=== PATIENT | female | born 1955 | race Caucasian/White ===

== ENCOUNTER 2018-06-21 08:41 | Emergency (ER) | payer OTHER ==
[2018-06-21] MEDS ORDERED: HYDROCODONE/APAP 5/325 MG TAB ONE (09:22)
--- NOTE | 2018-06-21 11:06 | RAD REPORT ---
EXAM DESCRIPTION: RAD - Ankle Left 3 View -06/21/2018 10:56 am CLINICAL HISTORY: Left ankle pain status post fall FINDINGS: The bones are osteoporotic. Soft tissue swelling is present laterally. No fracture or dislocation is seen
--- NOTE | 2018-06-21 11:08 | RAD REPORT ---
EXAM DESCRIPTION: RAD - Elbow Right 2 View - 06/21/2018 10:56 am CLINICAL HISTORY: Elbow pain status post fall FINDINGS: A limited two view series was obtained. 15 millimeter avulsion fracture of the olecranon process is seen. A supracondylar humeral fracture is mildly to moderately displaced. No gross dislocation is seen.
--- NOTE | 2018-06-21 11:15 | RAD REPORT ---
EXAM DESCRIPTION: CT - Thorax Wo Con - 06/21/2018 10:52 am CLINICAL HISTORY: Chest pain status post fall COMPARISON: None TECHNIQUE: Computed axial tomography of the chest was obtained. Contrast was not requested. All CT scans are performed using dose optimization technique as appropriate and may include automated exposure control or mA/KV adjustment according to patient size. FINDINGS: The evaluation of mediastinum, monica and vessels is limited secondary to lack of IV contras t administration. A pulmonary contusion is not seen. A mediastinal hematoma is not seen. A pleural effusion is not present. A pericardial effusion is not noted. IMPRESSION: No traumatic injury is noted.
--- NOTE | 2018-06-21 11:35 | RAD REPORT ---
EXAM DESCRIPTION: Mikaela Single View06/21/2018 10:57 am CLINICAL HISTORY: Chest pain COMPARISON: none FINDINGS: The lungs appear clear of acute infiltrate. The heart is normal size IMPRESSION: No acute abnormalities displayed
--- NOTE | 2018-06-21 12:57 | EDPHYS ---
Physician Documentation [facility] Name: Ailyn Davis Age: 62 yrs Sex: Female : 1955 Arrival Date: 06/21/2018 Time: 08:48 Bed 4 Private MD: None, None ED Physician Noe Hansen HPI: 06/21 12:52 This 62 yrs old Female presents to ER via Wheelchair with complaints of Fall gs Injury. 12:52 Details of fall: The patient fell from an upright position, while walking. Onset: The gs symptoms/episode began/occurred acutely, just prior to arrival. Associated injuries: The patient sustained right elbow, deformity, obvious fracture, painful injury, swelling, left lateral ankle, swelling. Associated injuries: The patient sustained injury to the chest, specifically the right lateral anterior chest, contusion. Severity of symptoms: At their worst the symptoms were moderate. The patient has not experienced similar symptoms in the past. Historical: - Allergies: 09:02 Sulfa (Sulfonamide Antibiotics); bp 09:02 Bactrim; bp - Home Meds: 09:02 Enalapril Oral [Active]; bp - PMHx: 09:02 Cancer; Hypertension; Diabetes - NIDDM; bp - PSHx: 09:02 Mastectomy; bp - Immunization history:: Adult Immunizations up to date. - Social history:: Smoking status: Patient/guardian denies using tobacco. - Ebola Screening: : Patient negative for fever greater than or equal to 101.5 degrees Fahrenheit, and additional compatible Ebola Virus Disease symptoms Patient denies exposure to infectious person Patient denies travel to an Ebola-affected area in the 21 days before illness onset No symptoms or risks identified at this time. ROS: 12:52 Cardiovascular: Negative for palpitations. gs 12:52 Respiratory: Negative for shortness of breath. 12:52 All other systems are negative. Exam: 12:52 Head/Face: Normocephalic, atraumatic. Eyes: Pupils equal round and reactive to light, gs extra-ocular motions intact. Lids and lashes normal. Conjunctiva and sclera are non-icteric and not injected. Cornea within normal limits. Periorbital areas with no swelling, redness, or edema. ENT: Nares patent. No nasal discharge, no septal abnormalities noted. Tympanic membranes are normal and external auditory canals are clear. Oropharynx with no redness, swelling, or masses, exudates, or evidence of obstruction, uvula midline. Mucous membranes moist. Neck: Trachea midline, no thyromegaly or masses palpated, and no cervical lymphadenopathy. Supple, full range of motion without nuchal rigidity, or vertebral point tenderness. No Meningismus. Cardiovascular: Regular rate and rhythm with a normal S1 and S2. No gallops, murmurs, or rubs. Normal PMI, no JVD. No pulse deficits. Respiratory: Lungs have equal breath sounds bilaterally, clear to auscultation and percussion. No rales, rhonchi or wheezes noted. No increased work of breathing, no retractions or nasal flaring. Abdomen/GI: Soft, non-tender, with normal bowel sounds. No distension or tympany. No guarding or rebound. No evidence of tenderness throughout. Back: No spinal tenderness. No costovertebral tenderness. Full range of motion. Neuro: Awake and alert, GCS 15, oriented to person, place, time, and situation. Cranial nerves II-XII grossly intact. Motor strength 5/5 in all extremities. Sensory grossly intact. Cerebellar exam normal. Normal gait. 12:52 Constitutional: The patient appears alert, awake, in obvious distress, moderately distressed. 12:52 Chest/axilla: Palpation: tenderness, that is mild, of the right lateral anterior chest. 12:52 Musculoskeletal/extremity: Pulses: are normal with no appreciated deficits, Joints: the right elbow displays deformity, effusion, painful range of motion, swelling, tenderness, the left ankle displays swelling. 12:52 Neuro: Sensation: no obvious gross deficits. Vital Signs: 09:02 BP 148 / 91; Pulse 67; Resp 16; Temp 98.9; Pulse Ox 97% ; Weight 108.86 kg; Height 5 bp ft. 5 in. (165.10 cm); 10:02 BP 142 / 88; Pulse 66; Resp 16; Pulse Ox 100% ; Pain 4/10; sg 11:02 BP 132 / 62; Pulse 69; Resp 17; Pulse Ox 100% on R/A; Pain 4/10; sg 11:57 BP 135 / 66; Pulse 69; Resp 18; Pulse Ox 100% on R/A; ss 12:02 BP 132 / 66; Pulse 69; Resp 17; Pulse Ox 100% on R/A; Pain 4/10; sg 13:02 BP 133 / 67; Pulse 67; Resp 17; Pulse Ox 100% on R/A; sg 09:02 Body Mass Index 39.94 (108.86 kg, 165.10 cm) bp Procedures: 12:52 Splinting: Splint applied to right elbow using Orthoglass splint, applied by tech. gs Examined by me, post splint application: neurovascular intact, 2+ distal pulses palpable, brisk capillary refill noted, Patient tolerated well. MDM: 09:14 Patient medically screened. gs 12:52 Differential diagnosis: fracture, laceration, sprain, strain. Data reviewed: vital gs signs, nurses notes. 06/21 09:12 Order name: Ankle Left 3 View XRAY; Complete Time: 11:54 gs 06/21 10:29 Order name: CT Chest Wo Con; Complete Time: 11:54 gs 06/21 10:48 Order name: Chest Single View; Complete Time: 11:54 EDMS 06/21 10:57 Order name: Elbow Right 2 View; Complete Time: 11:54 EDCA 06/21 09:12 Order name: NPO; Complete Time: 09:24 gs 06/21 11:54 Order name: Splint - Elbow - Posterior; Complete Time: 12:22 gs Administered Medications: 09:15 Drug: Eek 5 mg-325 mg 1 tabs Route: PO; sg 12:58 Follow up: Response: No adverse reaction; Pain is decreased 13:04 Drug: Tetanus-Diphtheria Toxoid Adult 0.5 ml {It Administrative Assistant: [employer]. Exp: ss 06/09/2020. Lot #: [id number]. } Route: IM; Site: left deltoid; Disposition: 06/21/18 12:57 Transfer ordered to [facility]. Diagnosis are Comminuted fracture of shaft of humerus, Displaced fracture of olecranon process without intraarticular extension of left ulna, Sprain of ankle. - Reason for transfer: Higher level of care. - Accepting physician is knox. - Condition is Stable. - Problem is new. - Symptoms have improved. Critical care time excluding procedures: 12:52 Critical care time: Bedside Care: 10 minutes, Consultation: 10 minutes, Family gs Intervention: 10 minutes. Total time: 30 minutes Signatures: Dispatcher [employer] EDToy Chauhan1 Cirilo Novoa RN RN sg Veornique Hinds RN RN ss Noe Hansen MD MD gs Darian Pichardo, RN RN bp Corrections: (The following items were deleted from the chart) 10:56 09:12 Elbow Right 3 View+RAD.RAD.BRZ ordered. EDMS EDMS 14:33 12:57 06/21/2018 12:57 Transfer ordered to [facility]. Diagnosis is jb1 Comminuted fracture of shaft of humerus; Displaced fracture of olecranon process without intraarticular extension of left ulna; Sprain of ankle. Reason for transfer: Higher level of care. Accepting physician is abilio. Condition is Stable. Problem is new. Symptoms have improved. gs
--- NOTE | 2018-06-21 12:57 | ER ---
Nurse's Notes [facility] Name: Ailyn Davis Age: 62 yrs Sex: Female : 1955 Arrival Date: 06/21/2018 Time: 08:48 Bed 4 Private MD: None, None Diagnosis: Comminuted fracture of shaft of humerus;Displaced fracture of olecranon process without intraarticular extension of left ulna;Sprain of ankle Presentation: 06/21 09:00 Presenting complaint: Patient states: MECHANICAL FALL FROM STANDING \T\ 0800. Transition bp of care: patient was not received from another setting of care. Onset of symptoms was June 21, 2018 at 08:00. Risk Assessment: Do you want to hurt yourself or someone else? Patient reports no desire to harm self or others. Initial Sepsis Screen: Does the patient meet any 2 criteria? No. Patient's initial sepsis screen is negative. Does the patient have a suspected source of infection? No. Patient's initial sepsis screen is negative. Care prior to arrival: None. 09:00 Method Of Arrival: Wheelchair bp 09:00 Acuity: VICKY 3 bp Triage Assessment: 09:02 General: Appears in no apparent distress. uncomfortable, obese, Behavior is calm, bp cooperative, appropriate for age. Pain: Complains of pain in right elbow and anterior aspect of right ankle. Historical: - Allergies: 09:02 Sulfa (Sulfonamide Antibiotics); bp 09:02 Bactrim; bp - Home Meds: 09:02 Enalapril Oral [Active]; bp - PMHx: 09:02 Cancer; Hypertension; Diabetes - NIDDM; bp - PSHx: 09:02 Mastectomy; bp - Immunization history:: Adult Immunizations up to date. - Social history:: Smoking status: Patient/guardian denies using tobacco. - Ebola Screening: : Patient negative for fever greater than or equal to 101.5 degrees Fahrenheit, and additional compatible Ebola Virus Disease symptoms Patient denies exposure to infectious person Patient denies travel to an Ebola-affected area in the 21 days before illness onset No symptoms or risks identified at this time. Screenin:22 Abuse screen: Denies threats or abuse. Denies injuries from another. Nutritional sg screening: No deficits noted. Tuberculosis screening: No symptoms or risk factors identified. Never had TB. Fall Risk None identified. Assessment: 09:22 Pain: Complains of pain in right arm and right leg and right elbow Quality of pain is sg described as sharp, tender. Neuro: Level of Consciousness is awake, alert, obeys commands, Oriented to person, place, time, situation, Moves all extremities. Speech is normal, Facial symmetry appears normal. Cardiovascular: Capillary refill is brisk in bilateral fingers toes Patient's skin is warm and dry. Chest pain is denied. Respiratory: Airway is patent Respiratory effort is even, unlabored, Respiratory pattern is regular, symmetrical. GI: Abdomen is round non-distended. 09:22 Derm: Skin is pink, warm \T\ dry. Musculoskeletal: Range of motion: limited in right sg elbow Swelling present in right elbow. 09:24 Reassessment: ICE pack applied to R forearm and L ankle for comfort. Warm blanket also ss given. Family remains at bedside, call light within reach. Pt is grateful. 10:35 Reassessment: assisted patient to restroom via wheelchair. Sling placed to R arm for ss comfort. XRAY now at bedside obtaining images. Pt requests to stay in wheelchair as she feels it is more comfortable. Family at bedside. 11:54 Reassessment: Patient appears in no apparent distress at this time. Patient and/or ss family updated on plan of care and expected duration. Pain level reassessed. Patient is alert, oriented x 3, equal unlabored respirations, skin warm/dry/pink. XRAYS back at this time, awaiting further orders and/or disposition. 12:57 Reassessment: Pt updated on POC. Aware of transfer to [facility] for higher level of ss care. Pt requests that family drive her to receiving facility. Okay with Dr. Hansen. Awaiting administrative approval. Vital Signs: 09:02 BP 148 / 91; Pulse 67; Resp 16; Temp 98.9; Pulse Ox 97% ; Weight 108.86 kg; Height 5 bp ft. 5 in. (165.10 cm); 10:02 BP 142 / 88; Pulse 66; Resp 16; Pulse Ox 100% ; Pain 4/10; sg 11:02 BP 132 / 62; Pulse 69; Resp 17; Pulse Ox 100% on R/A; Pain 4/10; sg 11:57 BP 135 / 66; Pulse 69; Resp 18; Pulse Ox 100% on R/A; ss 12:02 BP 132 / 66; Pulse 69; Resp 17; Pulse Ox 100% on R/A; Pain 4/10; sg 13:02 BP 133 / 67; Pulse 67; Resp 17; Pulse Ox 100% on R/A; sg 09:02 Body Mass Index 39.94 (108.86 kg, 165.10 cm) bp ED Course: 08:48 Patient arrived in ED. mr 08:48 None, None is Private Physician. mr 09:01 Triage completed. bp 09:01 Noe Hansen MD is Attending Physician. gs 09:02 Arm band placed on. bp 09:14 Cirilo Novoa, POLLY is Primary Nurse. aa5 09:22 Patient has correct armband on for positive identification. Bed in low position. Call sg light in reach. Pulse ox on. NIBP on. Pillow given. Verbal reassurance given. Elevated right arm. 10:08 Awaiting for x-ray. sg 10:46 X-ray completed. Portable x-ray completed in exam room. Patient tolerated procedure mh1 well. 10:52 CT Chest Wo Con In Process Unspecified. EDMS 10:56 Ankle Left 3 View XRAY In Process Unspecified. EDMS 10:57 Chest Single View In Process Unspecified. EDMS 10:57 Elbow Right 2 View In Process Unspecified. EDMS 13:17 No provider procedures requiring assistance completed. Patient did not have IV access sg during this emergency room visit. 13:18 transfer transportation to receiving facility. Awaiting transportation. sg Administered Medications: 09:15 Drug: Fingal 5 mg-325 mg 1 tabs Route: PO; sg 12:58 Follow up: Response: No adverse reaction; Pain is decreased ss 13:04 Drug: Tetanus-Diphtheria Toxoid Adult 0.5 ml {Radiagraph Operator: [employer]. Exp: ss 06/09/2020. Lot #: [id number]. } Route: IM; Site: left deltoid; Outcome: 12:57 ER care complete, transfer ordered by . 13:17 Transferred by ground EMS to [facility], Transfer form completed. sg X-rays sent w/ patient. 13:17 Condition: good 13:17 Instructed on the need for admit, safety practices, Demonstrated understanding of instructions, splint care. 14:33 Patient left the ED. jb1 Signatures: Dispatcher [employer] EDMS Wallace Toy jb1 Cirilo Novoa, RN RN sg Krish, Cheryl mr Liberty Pickard 1 Ruth Braun, POLLY RN aa5 Veronique Hinds RN RN ss Noe Hansen MD MD Darian Pichardo RN RN bp
[2018-06-21] MEDS ORDERED: TETANUS & DIPHTHERIA TOX,ADULT 0.5 ML VIAL ONE (13:05)
== END 2018-06-21 14:33 | disposition short-term general hospital (02) ==
LOC: ER 08:41
PROC: 2W3CX1Z Immobilization of Right Lower Arm using Splint (ICD-10-PCS; principal; 2018-06-21)
DX: S42.351A Displaced comminuted fracture of shaft of humerus, right arm, initial encounter for closed fracture (principal); S52.022A Displaced fracture of olecranon process without intraarticular extension of left ulna, initial encounter for closed fracture; S93.402A Sprain of unspecified ligament of left ankle, initial encounter; W19.XXXA Unspecified fall, initial encounter; Y93.01 Activity, walking, marching and hiking; Y92.9 Unspecified place or not applicable; Z88.1 Allergy status to other antibiotic agents; Z88.2 Allergy status to sulfonamides; Z23 Encounter for immunization; I10 Essential (primary) hypertension
CPT/HCPCS: 71045; 71250; 90714; 99285

== ENCOUNTER 2020-10-25 09:23 | Inpatient (IN) | payer OTHER ==
--- NOTE | 2020-10-25 10:07 | RAD REPORT ---
EXAM DESCRIPTION: Mikaela Single View10/25/2020 10:02 am CLINICAL HISTORY: Shortness of breath COMPARISON: none FINDINGS: Mild to moderate mid to lower left lung opacities. Right lung appears clear of acute infiltrate. Heart is mildly enlarged IMPRESSION: Mild to moderate left lung opacities probably pneumonia. This should be followed until i t is clear to exclude a post obstructive process/underlying mass
[2020-10-25 10:25] LABS: Basophils % 0.2 % (0-1.3); Lymphocytes % 15.1 % (15.3-44.8); MPV 9.3 fL (7.6-11.3); RBC Red Blood Cell Count 4.94 M/uL (3.86-4.86)
[2020-10-25 10:29] LABS: Protime INR 1.07
[2020-10-25] MEDS ORDERED: dexAMETHasone 10 MG/ML VIAL ONE (10:33)
[2020-10-25] MEDS ORDERED: ACETAMINOPHEN 325 MG TABLET ONE (10:33)
[2020-10-25 10:52] LABS: ALT/SGPT 28 U/L (12-78); AST/SGOT 25 U/L (15-37); Albumin 3.6 g/dL (3.4-5.0); Alkaline Phosphatase 63 U/L (45-117); BUN Blood Urea Nitrogen 12 mg/dL (7-18); Bicarbonate 26 mmol/L (21-32); Bilirubin Direct 0.3 mg/dL (0-0.2); Bilirubin Total 0.7 mg/dL (0.2-1.0); Ferritin 488.6 ng/mL (8-388); Glucose Level 155 mg/dL (74-106); Lipase 165 U/L (73-393); Potassium 3.9 mmol/L (3.5-5.1); Protein, Total 7.8 g/dL (6.4-8.2); Sodium Level 137 mmol/L (136-145); Troponin (Emerg Dept Use Only) < 0.02 ng/mL (0.0-0.045)
--- NOTE | 2020-10-25 11:36 | RAD REPORT ---
EXAM DESCRIPTION: CT - Chest For Pe Angio - 10/25/2020 11:28 am CLINICAL HISTORY: Shortness of breath COMPARISON: October 25 chest x-ray TECHNIQUE: Dynamically enhanced axial 3 mm thick images of the chest were obtained during administra tion of <100> mL Isovue 370 IV contrast. Coronal and oblique reconstruction images were generated and reviewed. Exam utilizes a protocol for optimal evaluation of pulmonary arterial tree. Maximum intensity projections 3D imaging was utilized All CT scans are performed using dose optimization technique as appropriate and may include automated exposure control or mA/KV adjustment according to patient size. FINDINGS: A pulmonary embolus is not seen. A thoracic aortic aneurysm is not noted. Bovine aorta A pleural effusion is not seen. A pericardial effusion is not seen. Mild to moderate bilateral ground-glass opacities Fatty liver IMPRESSION: Negative for a pulmonary embolism. Mild to moderate bilateral ground-glass opacities may indicate Covid pneumonia
--- NOTE | 2020-10-25 12:30 | EDPHYS ---
Physician Documentation [facility] Name: Ailyn Davis Age: 65 yrs Sex: Female : 1955 Arrival Date: 10/25/2020 Time: 09:28 Bed 13 Private MD: ED Physician Sukhdev Caldwell HPI: 10/25 10:20 This 65 yrs old Female presents to ER via Ambulatory with complaints of kb COVID+, Breathing Difficulty. 10:20 The patient or guardian reports cough, that is intermittent, described as mild, with no kb sputum, difficulty breathing. Onset: The symptoms/episode began/occurred 8 day(s) ago. Severity of symptoms: At their worst the symptoms were moderate, in the emergency department the symptoms are unchanged. Modifying factors: The symptoms are alleviated by nothing, the symptoms are aggravated by nothing. Associated signs and symptoms: Pertinent positives: fever, Pertinent negatives: chest pain, diarrhea, ear ache, nausea, rhinorrhea, sore throat, vomiting. The patient has not experienced similar symptoms in the past. The patient has not recently seen a physician. Pt reports she developed covid symptoms 8 days ago, tested positive 6 days ago. Was put on zithromax and a medrol dose pack. Today shortness of breath is worse . Historical: - Allergies: 09:52 Sulfa (Sulfonamide Antibiotics); ll1 09:52 Bactrim; ll1 - Home Meds: 09:50 enalapril maleate 20 mg Oral tab 1 tab once daily [Active]; letrozole 2.5 mg oral tab 1 aa5 tab once daily [Active]; Farxiga 10 mg oral tab 1 tab once daily [Active]; methylprednisolone 4 mg Oral tab [Active]; azithromycin 250 mg Oral tab once daily [Active]; - PMHx: 09:52 Diabetes - NIDDM; Hypertension; Cancer; ll1 - PSHx: 09:52 Mastectomy; Cholecystectomy; ; ll1 - Immunization history:: Adult Immunizations up to date. - Social history:: Smoking status: Patient denies any tobacco usage or history of. ROS: 10:14 Constitutional: Negative for fever, chills, and weight loss, Cardiovascular: Negative kb for chest pain, palpitations, and edema, Abdomen/GI: Negative for abdominal pain, nausea, vomiting, diarrhea, and constipation, Back: Negative for injury and pain, MS/Extremity: Negative for injury and deformity, Skin: Negative for injury, rash, and discoloration, Neuro: Negative for headache, weakness, numbness, tingling, and seizure. 10:14 Respiratory: Positive for cough, shortness of breath, Negative for dyspnea on exertion, hemoptysis, orthopnea, pleurisy, sputum production, wheezing. Exam: 10:14 Constitutional: This is a well developed, well nourished patient who is awake, alert, kb and in no acute distress. Head/Face: Normocephalic, atraumatic. Chest/axilla: Normal chest wall appearance and motion. Nontender with no deformity. No lesions are appreciated. Cardiovascular: Regular rate and rhythm with a normal S1 and S2. No gallops, murmurs, or rubs. Normal PMI, no JVD. No pulse deficits. Abdomen/GI: Soft, non-tender, with normal bowel sounds. No distension or tympany. No guarding or rebound. No evidence of tenderness throughout. Skin: Warm, dry with normal turgor. Normal color with no rashes, no lesions, and no evidence of cellulitis. MS/ Extremity: Pulses equal, no cyanosis. Neurovascular intact. Full, normal range of motion. Neuro: Awake and alert, GCS 15, oriented to person, place, time, and situation. Cranial nerves II-XII grossly intact. Motor strength 5/5 in all extremities. Sensory grossly intact. Cerebellar exam normal. Normal gait. 10:14 Respiratory: mild respiratory distress is noted, moderate respiratory distress is noted, Respirations: labored breathing, that is mild, that is moderate, Breath sounds: are clear throughout. Vital Signs: 09:37 BP 128 / 64; Pulse 85; Resp 24 S; Temp 100.3(O); Pulse Ox 89% on R/A; aa5 09:45 Pulse Ox 92% on 2 lpm NC; aa5 12:20 BP 117 / 68; Pulse 77; Resp 22; Pulse Ox 94% on 2 lpm NC; vg1 MDM: 09:41 Patient medically screened. kb 10:15 Data reviewed: vital signs, nurses notes. Data interpreted: Pulse oximetry: on room air kb is 89 %. Interpretation: hypoxia. Plan: O2 by NC applied. 12:28 Counseling: I had a detailed discussion with the patient and/or guardian regarding: the kb historical points, exam findings, and any diagnostic results supporting the discharge/admit diagnosis, lab results, radiology results, the need for further work-up and treatment in the hospital. Physician consultation: Car Eloisamaris was contacted at 12:29, regarding admission, patient's condition, in the emergency department to see patient at 12:29. 10/25 09:46 Order name: Blood Culture Adult (2) kb 10/25 09:46 Order name: BMP kb 10/25 09:46 Order name: C-Reactive Protein kb 10/25 09:46 Order name: CBC with Diff kb 10/25 09:46 Order name: D-Dimer; Complete Time: 10:30 kb 10/25 09:46 Order name: Ferritin; Complete Time: 10:55 kb 10/25 09:46 Order name: Lactate; Complete Time: 10:50 kb 10/25 09:46 Order name: LFT's; Complete Time: 10:55 kb 10/25 09:46 Order name: Lipase; Complete Time: 10:55 kb 10/25 09:46 Order name: Procalcitonin; Complete Time: 11:31 kb 10/25 09:46 Order name: PT-INR; Complete Time: 10:30 kb 10/25 09:46 Order name: Ptt, Activated; Complete Time: 10:30 kb 10/25 09:46 Order name: Troponin (emerg Dept Use Only); Complete Time: 10:55 kb 10/25 09:47 Order name: Blood Culture EDMS 10/25 09:46 Order name: CXR XRAY; Complete Time: 10:13 kb 10/25 09:46 Order name: EKG; Complete Time: 09:47 kb 10/25 09:46 Order name: Cardiac monitoring; Complete Time: 10:43 kb 10/25 09:46 Order name: Droplet/Contact Precautions; Complete Time: 10:14 kb 10/25 09:46 Order name: EKG - Nurse/Tech; Complete Time: 10:43 kb 10/25 09:46 Order name: IV Start; Complete Time: 10:14 kb 10/25 09:46 Order name: Labs collected and sent; Complete Time: 10:14 kb 10/25 09:46 Order name: O2 Per Protocol; Complete Time: 10:14 kb 10/25 09:47 Order name: Basic Metabolic Panel; Complete Time: 10:55 EDWY 10/25 09:47 Order name: C-Reactive Protein; Complete Time: 10:55 EDWY 10/25 09:47 Order name: CBC with Automated Diff; Complete Time: 10:28 EDWY 10/25 10:31 Order name: CT Chest For PE Angio; Complete Time: 11:45 kb 10/25 12:37 Order name: CONS Physician Consult EDWY 10/25 12:37 Order name: Consistent Carb (ADA) 1800 Prav[address] EDWY 10/25 09:46 Order name: O2 Sat Monitoring; Complete Time: 10:14 kb Administered Medications: 10:15 Drug: Decadron - Dexamethasone 10 mg Route: IVP; Site: left antecubital; ll1 12:50 Follow up: Response: No adverse reaction vg1 10:15 Drug: Tylenol 650 mg Route: PO; ll1 12:50 Follow up: Response: No adverse reaction vg1 Disposition: 14:38 Co-signature as Attending Physician, Sukhdev Caldwell MD I agree with the assessment and kdr plan of care. Disposition: 10/25/20 12:30 Hospitalization ordered by Car Pastrana for Observation. Preliminary diagnosis are hypoxia, Coronavirus infection, unspecified, Viral pneumonia, unspecified. - Bed requested for Telemetry/MedSurg (observation). - Status is Observation. vg1 - Condition is Stable. - Problem is new. - Symptoms are unchanged. Signatures: Dispatcher [employer] [facility] Katherine Steven, MEDICAL CODING MANAGER-C MEDICAL CODING MANAGER-Ckb Jazmin Dawn RN RN dw Rittger, Kevin, MD MD [facility] Ruth Braun, POLLY RN aa5 Deb Calderon, RN RN vg1 Esteban Stein, POLLY RN ll1 Corrections: (The following items were deleted from the chart) 12:41 12:30 Hospitalization Ordered by Car Pastrana for Observation. Preliminary diagnosis dw is hypoxia; Coronavirus infection, unspecified; Viral pneumonia, unspecified. Bed requested for Telemetry/MedSurg (observation). Status is Observation. Condition is Stable. Problem is new. Symptoms are unchanged. kb 13:17 12:41 10/25/2020 12:30 Hospitalization Ordered by Car Pastrana for Observation. vg1 Preliminary diagnosis is hypoxia; Coronavirus infection, unspecified; Viral pneumonia, unspecified. Bed requested for Telemetry/MedSurg (observation). Status is Observation. Condition is Stable. Problem is new. Symptoms are unchanged. dw
--- NOTE | 2020-10-25 12:30 | ER ---
Nurse's Notes [facility] [place] Name: Ailyn Davis Age: 65 yrs Sex: Female : 1955 Arrival Date: 10/25/2020 Time: 09:28 Bed 13 Private MD: Diagnosis: hypoxia;Coronavirus infection, unspecified;Viral pneumonia, unspecified Presentation: 10/25 09:37 Chief complaint: Patient states: "I tested positive for COVID-19 on Wednesday and now I aa5 am short of breath and really weak". O2 sat currently 89% RA, tachypnea noted. 09:37 Coronavirus screen: Client reports previous positive COVID test result. Ebola Screen: aa5 Patient negative for fever greater than or equal to 101.5 degrees Fahrenheit, and additional compatible Ebola Virus Disease symptoms. Risk Assessment: Do you want to hurt yourself or someone else? Patient reports no desire to harm self or others. Onset of symptoms was October 19, 2020. 09:37 Acuity: VICKY 2 aa5 09:37 Method Of Arrival: Ambulatory aa5 Historical: - Allergies: 09:52 Sulfa (Sulfonamide Antibiotics); ll1 09:52 Bactrim; ll1 - Home Meds: 09:50 enalapril maleate 20 mg Oral tab 1 tab once daily [Active]; letrozole 2.5 mg oral tab 1 aa5 tab once daily [Active]; Farxiga 10 mg oral tab 1 tab once daily [Active]; methylprednisolone 4 mg Oral tab [Active]; azithromycin 250 mg Oral tab once daily [Active]; - PMHx: 09:52 Diabetes - NIDDM; Hypertension; Cancer; ll1 - PSHx: 09:52 Mastectomy; Cholecystectomy; ; ll1 - Immunization history:: Adult Immunizations up to date. - Social history:: Smoking status: Patient denies any tobacco usage or history of. Screenin:51 Abuse screen: Denies threats or abuse. Nutritional screening: No deficits noted. ll1 Tuberculosis screening: No symptoms or risk factors identified. 10:45 Fall Risk IV access (20 points). Total Espinoza Fall Scale indicates No Risk (0-24 pts). ll1 Assessment: 10:00 General: Appears ill, Behavior is calm, cooperative, appropriate for age. Pain: Denies ll1 pain. Cardiovascular: Rhythm is regular. Respiratory: Reports cough that is Airway is patent Trachea midline Respiratory effort is even, labored, Respiratory pattern is regular, symmetrical. GI: No deficits noted. Musculoskeletal: Circulation, motion, and sensation intact. Capillary refill < 3 seconds, Reports weakness in generalized fatigue. 12:20 Reassessment: Patient appears in no apparent distress at this time. Patient and/or vg1 family updated on plan of care and expected duration. Pain level reassessed. Patient is alert, oriented x 3, equal unlabored respirations, skin warm/dry/pink. Patient denies pain at this time. Patient states feeling better. Patient states the O2 is helping.. Vital Signs: 09:37 BP 128 / 64; Pulse 85; Resp 24 S; Temp 100.3(O); Pulse Ox 89% on R/A; aa5 09:45 Pulse Ox 92% on 2 lpm NC; aa5 12:20 BP 117 / 68; Pulse 77; Resp 22; Pulse Ox 94% on 2 lpm NC; vg1 ED Course: 09:28 Patient arrived in ED. mr 09:37 Arm band placed on Patient placed in an exam room, on a stretcher. aa5 09:41 Katherine Steven FNP-C is PHCP. kb 09:41 Sukhdev Caldwell MD is Attending Physician. kb 09:51 Esteban Stein, RN is Primary Nurse. ll1 09:52 Patient has correct armband on for positive identification. Bed in low position. Call ll1 light in reach. Side rails up X 1. Pulse ox on. NIBP on. 10:01 Triage completed. aa5 10:02 CXR XRAY In Process Unspecified. EDMS 11:28 CT Chest For PE Angio In Process Unspecified. EDMS 12:16 Primary Nurse role handed off by Esteban Stein, POLLY vg1 12:16 Deb Calderon, POLLY is Primary Nurse. vg1 12:30 Car Pastrana is Hospitalizing Provider. kb 12:53 No provider procedures requiring assistance completed. Patient admitted, IV remains in vg1 place. Administered Medications: 10:15 Drug: Decadron - Dexamethasone 10 mg Route: IVP; Site: left antecubital; ll1 12:50 Follow up: Response: No adverse reaction vg1 10:15 Drug: Tylenol 650 mg Route: PO; ll1 12:50 Follow up: Response: No adverse reaction vg1 Outcome: 12:30 Decision to Hospitalize by Provider. lo 13:02 Admitted to Med/surg accompanied by tech, via stretcher, room 407, with oxygen, with vg1 chart, Report called to POLLY Roman 13:02 Condition: stable 13:02 Instructed on the need for admit. 13:17 Patient left the ED. vg1 Signatures: Dispatcher [employer] EDKatherine Faustin, DEBRA PROCUREMENT INSPECTOR-Cheryl Ron mr Braun, Ruth, RN RN aa5 Deb Calderon RN RN vg1 Esteban Stein RN RN ll1 Corrections: (The following items were deleted from the chart) 10:01 09:51 Arm band placed on Patient placed in an exam room, on a stretcher, ll1 aa5
[2020-10-25] MEDS ORDERED: ONDANSETRON 4 MG/2 ML VIAL IV PRN (12:34)
--- NOTE | 2020-10-25 12:37 | P.HP ---
Certification for Inpatient Patient admitted to: Observation With expected LOS: <2 Midnights Practitioner: I am a practitioner with admitting privileges, knowledge of patient current condition, hospital course, and medical plan of care. Services: Services provided to patient in accordance with Admission requirements found in Title 42 Section 412.3 of the Code of Federal Regulations Patient History Date of Service: 10/25/20 Reason for admission: Shortness of breath History of Present Illness: 65-year-old woman with a history of hypertension and diabetes presented to the emergency department with a complaint of progressive shortness of breath. She was diagnosed with COVID 19 1 week ago and was prescribed azithromycin by her PCP. Patient reports progressive shortness of breath which became worse today and therefore presented to the emergency department. CT angiogram of thorax done in the emergency shows mild to moderate bilateral patchy infiltrates consistent with COVID pneumonia. Patient does not meet criteria for sepsis. Pro calcitonin level is normal. Patient noted to be hypoxic with oxygen saturation in the mid 80s on room air. She is now tolerating 2 L of oxygen by nasal cannula. Patient is hospitalized for further management of COVID pneumonia. Allergies Sulfa (Sulfonamide Antibiotics) Allergy (Verified 10/25/20 13:15) Hives/Rash Home Medications: Calcium Carbonate/Vitamin D3 [Calcium 500 mg-Vit D3 5 Mcg Tb] 500 mg PO DAILY 10/25/20 Dapagliflozin Propanediol [Farxiga] 10 mg PO DAILY 10/25/20 Enalapril Maleate 20 mg PO DAILY 10/25/20 Letrozole [Femara*] 2.5 mg PO DAILY 10/25/20 - Past Medical/Surgical History Diabetic: Yes -: Hypertension -: Diabetes -: Breast cancer -: Bilateral breast reconstruction surgery - Family History Sister -: Cancer (Breast) - Social History Smoking Status: Never smoker Alcohol use: No CD- Drugs: No Place of Residence: Home Review of Systems Other: Except as documented, all other systems reviewed and negative. Physical Examination - Physical Exam General: Alert, In no apparent distress, Oriented x3 HEENT: Atraumatic, Normocephalic, PERRLA, Mucous membr. moist/pink, EOMI, Sclerae nonicteric Neck: Supple, JVD not distended Respiratory: Normal air movement, Crackles/rales (Mild bibasilar crackles.) Cardiovascular: No edema, Regular rate/rhythm, Normal S1 S2 Gastrointestinal: Soft and benign, Non-distended, No tenderness Musculoskeletal: No swelling, No tenderness Integumentary: No rashes, No erythema Neurological: Normal speech, Normal strength at 5/5 x4 extr, Cranial nerves 3-12 intact - Studies Laboratory Data (last 24 hrs) 10/25/20 10:00: PT 12.3, INR 1.07, APTT 24.7 10/25/20 10:00: WBC 6.90, Hgb 14.9, Hct 44.0, Plt Count 151 L 10/25/20 10:00: Sodium 137, Potassium 3.9, BUN 12, Creatinine 0.72, Glucose 155 H, Total Bilirubin 0.7, AST 25, ALT 28, Alkaline Phosphatase 63, Lipase 165 Assessment and Plan - Problems (Diagnosis) (1) Pneumonia due to 2019 novel coronavirus Current Visit: Yes Status: Acute (2) Acute respiratory failure with hypoxia Current Visit: Yes Status: Acute (3) Diabetes mellitus type 2 in obese Current Visit: Yes Status: Acute (4) Hypertension Current Visit: Yes Status: Acute - Plan Place under observation. Start high-dose steroid. Start vitamin-C, vitamin-D and zinc supplementation. 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 Social service to assist with home oxygen arranged. Insulin sliding scale for glucose management. Watch for steroid induced hyperglycemia. Continue home medication for hypertension. Monitor ferritin and CRP levels. - Advance Directives Does patient have a Living Will: No Does patient have a Durable POA for Healthcare: No
[2020-10-25 15:46] LABS: Urine Appearance CLEAR; Urine Bilirubin NEGATIVE (NEG); Urine Blood NEGATIVE (NEG); Urine Color YELLOW; Urine Glucose 3+ (NEG); Urine Protein NEGATIVE (NEG); Urine Specific Gravity >=1.030 (1.005-1.030); Urine Urobilinogen 0.2 mg/dL (0.2-1.0); Urine pH 5.5 (5.0-7.0)
[2020-10-25 15:48] LABS: Urine Microscopic Reflex NO UMIC
[2020-10-25 16:13] VITALS: BMI 38.2
[2020-10-25] MEDS ORDERED: INFLUENZA VACCINE (for 3y+) 0.5 ML DOSE IMVAC ONE (17:00)
[2020-10-25] MEDS ORDERED: PNEUMOCOCCAL VACCINE 0.5 ML IMVAC ONE (17:00)
[2020-10-25] MEDS: INSULIN -REGULAR HUMAN 50 UNIT/0.5 ML ML SQ SCH ×2 (18:07→20:44)
[2020-10-25] MEDS: FAMOTIDINE 20 MG/2 ML VIAL IV SCH (20:43)
[2020-10-25] MEDS: APIXABAN 5 MG TABLET PO SCH (20:43)
[2020-10-25] MEDS: METHYLPREDNISOLONE 125 MG INJ IV SCH (20:44)
[2020-10-26 04:09] LABS: Absolute Lymphocytes (CBC) 1.2 K/uL (0.7-4.9); Basophils % 0.2 % (0-1.3); Hematocrit 41.5 % (36.0-45.0); Lymphocytes % 15.3 % (15.3-44.8); RBC Red Blood Cell Count 4.67 M/uL (3.86-4.86)
[2020-10-26 04:28] LABS: ALT/SGPT 27 U/L (12-78); AST/SGOT 22 U/L (15-37); Albumin 3.1 g/dL (3.4-5.0); Alkaline Phosphatase 56 U/L (45-117); BUN Blood Urea Nitrogen 18 mg/dL (7-18); Bicarbonate 23 mmol/L (21-32); Bilirubin Total 0.5 mg/dL (0.2-1.0); Glucose Level 211 mg/dL (74-106); Magnesium 2.4 mg/dL (1.8-2.4); Phosphorus 3.3 mg/dL (2.5-4.9); Potassium 4.1 mmol/L (3.5-5.1); Protein, Total 7.2 g/dL (6.4-8.2); Sodium Level 137 mmol/L (136-145)
[2020-10-26] MEDS: BENZONATATE 100 MG CAP PO PRN ×4 (06:00→21:19)
[2020-10-26] MEDS: APIXABAN 5 MG TABLET PO SCH ×2 (07:44→21:19)
[2020-10-26] MEDS: INSULIN -REGULAR HUMAN 50 UNIT/0.5 ML ML SQ SCH ×4 (07:44→21:18)
[2020-10-26] MEDS: FAMOTIDINE 20 MG/2 ML VIAL IV SCH ×2 (07:44→21:19)
[2020-10-26] MEDS: METHYLPREDNISOLONE 125 MG INJ IV SCH ×2 (07:46→21:19)
[2020-10-26] MEDS: ACETAMINOPHEN 500 MG TAB PO PRN ×2 (10:03→21:20)
[2020-10-26] MEDS ORDERED: INFLUENZA VACCINE (for 3y+) 0.5 ML DOSE IMVAC ONE (12:00)
[2020-10-26] MEDS ORDERED: PNEUMOCOCCAL VACCINE 0.5 ML IMVAC ONE (12:00)
--- NOTE | 2020-10-26 12:41 | P.DS ---
Admission Date: 10/25/20 Discharge Date: 10/26/20 Disposition: ROUTINE DISCHARGE Discharge Condition: FAIR Reason for Admission: Shortness of breath - Problems (1) Pneumonia due to 2019 novel coronavirus Current Visit: Yes Status: Acute (2) Acute respiratory failure with hypoxia Current Visit: Yes Status: Acute (3) Diabetes mellitus type 2 in obese Current Visit: Yes Status: Acute (4) Hypertension Current Visit: Yes Status: Acute Brief History of Present Illness: 65-year-old woman with a history of hypertension and diabetes presented to the emergency department with a complaint of progressive shortness of breath. She was diagnosed with COVID 19 1 week ago and was prescribed azithromycin by her PCP. Patient reports progressive shortness of breath which became worse today and therefore presented to the emergency department. CT angiogram of thorax done in the emergency shows mild to moderate bilateral patchy infiltrates consistent with COVID pneumonia. Patient does not meet criteria for sepsis. Pro calcitonin level is normal. Patient noted to be hypoxic with oxygen saturation in the mid 80s on room air. She is now tolerating 2 L of oxygen by nasal cannula. Patient hospitalized for further management of COVID pneumonia. Hospital Course: Patient placed under observation on the medical floor and started on IV steroid and antacids. Patient was maintained on 2-3 L of oxygen by nasal cannula with good oxygen saturation. Her respiratory condition did get worse. Patient qualifies for home oxygen. Home oxygen has been arranged for patient. He is discharged with prednisone, vitamin-D zinc supplementation to continue treatment for the COVID pneumonia. Patient is advised to come back to the emergency department showed she experienced shortness of breath even on her oxygen. Vital Signs/Physical Exam: Temp Pulse Resp BP Pulse Ox 97.8 F 56 20 130/75 91 10/26/20 08:00 10/26/20 08:00 10/26/20 08:00 10/26/20 08:00 10/26/20 08:00 General: Alert, In no apparent distress, Oriented x3 Neck: JVD not distended Respiratory: Normal air movement Cardiovascular: No edema, Regular rate/rhythm, Normal S1 S2 Gastrointestinal: Soft and benign, Non-distended Musculoskeletal: No swelling, No tenderness Integumentary: No rashes Neurological: Other (No focal motor deficit.) Laboratory Data at Discharge: WBC 7.80 K/uL (4.3-10.9) 10/26/20 03:43 Hgb 14.2 g/dL (12.0-15.0) 10/26/20 03:43 Hct 41.5 % (36.0-45.0) 10/26/20 03:43 Plt Count 154 K/uL (152-406) 10/26/20 03:43 PT 12.3 SECONDS (9.5-12.5) 10/25/20 10:00 INR 1.07 10/25/20 10:00 APTT 24.7 SECONDS (24.3-36.9) 10/25/20 10:00 Sodium 137 mmol/L (136-145) 10/26/20 03:43 Potassium 4.1 mmol/L (3.5-5.1) 10/26/20 03:43 BUN 18 mg/dL (7-18) 10/26/20 03:43 Creatinine 0.62 mg/dL (0.55-1.3) 10/26/20 03:43 Glucose 211 mg/dL (74-106) H 10/26/20 03:43 Phosphorus 3.3 mg/dL (2.5-4.9) 10/26/20 03:43 Magnesium 2.4 mg/dL (1.8-2.4) 10/26/20 03:43 Total Bilirubin 0.5 mg/dL (0.2-1.0) 10/26/20 03:43 AST 22 U/L (15-37) 10/26/20 03:43 ALT 27 U/L (12-78) 10/26/20 03:43 Alkaline Phosphatase 56 U/L (45-117) 10/26/20 03:43 Lipase 165 U/L (73-393) 10/25/20 10:00 Home Medications: Calcium Carbonate/Vitamin D3 [Calcium 500 mg-Vit D3 5 Mcg Tb] 500 mg PO DAILY 10/25/20 Dapagliflozin Propanediol [Farxiga] 10 mg PO DAILY 10/25/20 Enalapril Maleate 20 mg PO DAILY 10/25/20 Letrozole [Femara*] 2.5 mg PO DAILY 10/25/20 Apixaban [Eliquis] 5 mg PO BID #60 tablet 10/26/20 Ascorbic Acid [Vitamin C] 2,000 mg PO BID #240 tab.chew 02/13/21 Benzonatate [Tessalon Perle*] 200 mg PO Q3HP PRN #90 cap 10/26/20 Cholecalciferol (Vitamin D3) [Vitamin D3] 4,000 unit PO DAILY #30 capsule 10/26/20 Zinc Sulfate [Zinc Sulfate*] 220 mg PO DAILY #30 cap 10/26/20 dexAMETHasone [Dexamethasone] 4 mg PO BID #21 tablet 10/26/20 New Medications: Benzonatate [Tessalon Perle*] 200 mg PO Q3HP PRN #90 cap PRN Reason: Cough dexAMETHasone [Dexamethasone] 4 mg PO BID #21 tablet Apixaban [Eliquis] 5 mg PO BID #60 tablet Ascorbic Acid [Vitamin C] 2,000 mg PO BID #240 tab.chew Cholecalciferol (Vitamin D3) [Vitamin D3] 4,000 unit PO DAILY #30 capsule Zinc Sulfate [Zinc Sulfate*] 220 mg PO DAILY #30 cap Diet: AHA Activity: Ad dayana Followup: NONE,NONE [Primary Care Provider] - Lazarus Lynch MD [ACTIVE - CAN ADMIT] - 1 Week
[2020-10-26] MEDS ORDERED: D50W 25 GM/50 ML SYRINGE IV PRN (18:01)
[2020-10-26] MEDS ORDERED: GLUCAGON 1 MG/VIAL IM PRN (18:01)
--- NOTE | 2020-10-26 18:01 | P.PN ---
Subjective Date of Service: 10/26/20 Chief Complaint: Shortness of breath Patient reports increased shortness of breath. She desaturated to 88% when she moved to the bathroom with 3 L of oxygen by nasal cannula on. Physical Examination - Vital Signs Temperature: 98.1 F Blood Pressure: 146/75 Pulse: 60 Respirations: 20 Pulse Ox (%): 90 - Physical Exam General: Alert, In no apparent distress, Oriented x3 Neck: JVD not distended Respiratory: Crackles/rales Cardiovascular: No edema, Regular rate/rhythm Gastrointestinal: Soft and benign, Non-distended Musculoskeletal: No swelling Integumentary: No rashes Neurological: Other (No focal motor deficit) Assessment And Plan - Current Problems (Diagnosis) (1) Pneumonia due to 2019 novel coronavirus Current Visit: Yes Status: Acute (2) Acute respiratory failure with hypoxia Current Visit: Yes Status: Acute (3) Diabetes mellitus type 2 in obese Current Visit: Yes Status: Acute (4) Hypertension Current Visit: Yes Status: Acute - Plan Continue IV steroid. Continue vitamin-C, vitamin-D and zinc supplementation. 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 Social service to assist with home oxygen arranged. Insulin sliding scale for glucose management. Watch for steroid induced hyperglycemia. Continue home medication for hypertension. Monitor ferritin and CRP levels.
[2020-10-26] MEDS: IPRATROPIUM BROM 0.5MG/2.5ML NEB SCH (20:19)
[2020-10-26] MEDS: ALBUTEROL 2.5 MG/3 ML NEB SOL NEB SCH (20:19)
[2020-10-26] MEDS ORDERED: IPRATROPIUM BROM 0.5MG/2.5ML ONE (20:31)
[2020-10-26] MEDS ORDERED: ALBUTEROL 2.5 MG/3 ML NEB SOL ONE (20:31)
[2020-10-26] MEDS: INSULIN GLARGINE 100 UNITS/ML SQ SCH (21:18)
[2020-10-27] MEDS: IPRATROPIUM BROM 0.5MG/2.5ML NEB SCH (01:50)
[2020-10-27] MEDS: ALBUTEROL 2.5 MG/3 ML NEB SOL NEB SCH ×4 (01:50→19:30)
[2020-10-27] MEDS ORDERED: IPRATROPIUM BROM 0.5MG/2.5ML NEB PRN (03:18)
[2020-10-27] MEDS: BENZONATATE 100 MG CAP PO PRN ×2 (06:16→20:06)
[2020-10-27 07:02] LABS: Absolute Lymphocytes (CBC) 0.9 K/uL (0.7-4.9); Basophils % 0.1 % (0-1.3); Hematocrit 40.6 % (36.0-45.0); MPV 9.4 fL (7.6-11.3); RBC Red Blood Cell Count 4.58 M/uL (3.86-4.86)
[2020-10-27 07:09] LABS: BUN Blood Urea Nitrogen 17 mg/dL (7-18); Bicarbonate 25 mmol/L (21-32); Ferritin 574.2 ng/mL (8-388); Glucose Level 266 mg/dL (74-106); Potassium 4.1 mmol/L (3.5-5.1); Sodium Level 138 mmol/L (136-145)
[2020-10-27] MEDS: METHYLPREDNISOLONE 125 MG INJ IV SCH ×2 (07:37→20:06)
[2020-10-27] MEDS: FAMOTIDINE 20 MG/2 ML VIAL IV SCH ×2 (07:37→20:06)
[2020-10-27] MEDS: APIXABAN 5 MG TABLET PO SCH ×2 (07:37→20:06)
[2020-10-27] MEDS: INSULIN -REGULAR HUMAN 50 UNIT/0.5 ML ML SQ SCH ×4 (07:47→20:12)
[2020-10-27 09:14] LABS: Blood Morphology Comment NOT SEEN (NOT SEEN); Platelet Estimate ADEQ; White Blood Cell Scan OK (OK)
[2020-10-27] MEDS ORDERED: IVERMECTIN 3 MG TABLET PO ONE (11:26)
--- NOTE | 2020-10-27 11:27 | P.PN ---
Subjective Date of Service: 10/27/20 Chief Complaint: Respiratory failure from schwartz virus Physical Examination - Vital Signs Temperature: 97.2 F Blood Pressure: 143/79 Pulse: 66 Respirations: 26 Pulse Ox (%): 91
--- NOTE | 2020-10-27 11:34 | P.CNS ---
Date of Consult: 10/27/20 Chief Complaint: Respiratory failure from schwartz virus History of Present Illness: Patient is 65 years of age with a history of hypertension diabetes she was diagnosed with schwartz virus at [facility] about a week ago was prescribed Zithromax became progressively worse and appeared in the hospital she has minimal bilateral changes Terence on nasal cannula oxygen still complains of shortness of breath on exertion history of sleep apnea on CPAP Allergies Sulfa (Sulfonamide Antibiotics) Allergy (Verified 10/25/20 13:15) Hives/Rash Home Medications: Calcium Carbonate/Vitamin D3 [Calcium 500 mg-Vit D3 5 Mcg Tb] 500 mg PO DAILY 0 10/25/20 Dapagliflozin Propanediol [Farxiga] 10 mg PO DAILY 10/25/20 Enalapril Maleate 20 mg PO DAILY 10/25/20 Letrozole [Femara*] 2.5 mg PO DAILY 10/25/20 Apixaban [Eliquis] 5 mg PO BID #60 tablet 10/26/20 Ascorbic Acid [Vitamin C] 2,000 mg PO BID #240 tab.chew 10/26/20 Benzonatate [Tessalon Perle*] 200 mg PO Q3HP PRN #90 cap 10/26/20 Cholecalciferol (Vitamin D3) [Vitamin D3] 4,000 unit PO DAILY #30 capsule 10/26/20 Zinc Sulfate [Zinc Sulfate*] 220 mg PO DAILY #30 cap 10/26/20 dexAMETHasone [Dexamethasone] 4 mg PO BID #21 tablet 10/26/20 - Past Medical/Surgical History Diabetic: Yes -: Hypertension -: Diabetes -: Breast cancer -: Bilateral breast reconstruction surgery - Family History Sister Medical History: Cancer (Breast) - Social History Alcohol use: No CD- Drugs: No Caffeine use: Yes Place of Residence: Home Review of Systems General: Weakness Respiratory: Cough, Shortness of Breath Physical Examination Temp Pulse Resp BP Pulse Ox 97.2 F 66 26 H 143/79 H 91 10/27/20 11:27 10/27/20 11:27 10/27/20 11:27 10/27/20 11:27 10/27/20 11:27 General: Alert, Oriented x3, Mild distress - Problems (1) Pneumonia due to 2019 novel coronavirus Current Visit: Yes Status: Acute Plan: Patient is 65 years of age admitted with hypoxemia from schwartz virus she is doing better on 2-4 L of nasal cannula oxygen history of Cirilo Nghia syndrome therefore ivermectin was not given a appears to be no contraindication patient is poly stable to be discharged home on oxygen and prednisone follow with me in 2 weeks (2) Sleep apnea Current Visit: Yes Status: Acute Plan: Patient has a history of sleep apnea arm her CPAP machine is very old patient will need a new sleep study as an outpatient 1 she is off the oxygen as setup for a new a CPAP machine with with Medicare wean well she can go home take the mask from the hospital to bleed in the oxygen when she is using CPAP at home for a sleep apnea Qualifiers: Sleep apnea type: unspecified type Qualified Code(s): G47.30 - Sleep apnea, unspecified
[2020-10-27] MEDS ORDERED: DIPHENHYDRAMINE 50 MG/ML VIAL IV ONE (12:53)
[2020-10-27] MEDS ORDERED: ACETAMINOPHEN 325 MG TABLET PO ONE (12:53)
--- NOTE | 2020-10-27 13:00 | P.PN ---
Subjective Date of Service: 10/27/20 Chief Complaint: Respiratory failure from schwartz virus Patient clinical condition is getting worse. Oxygen requirement has increased to 8L by nasal cannula. Patient complaining of shortness of breath with some labored breathing. Physical Examination - Vital Signs Temperature: 97.2 F Blood Pressure: 143/79 Pulse: 66 Respirations: 26 Pulse Ox (%): 91 - Physical Exam General: Alert, Oriented x3, Mild distress HEENT: Mucous membr. moist/pink Neck: Supple, JVD not distended Respiratory: Crackles/rales, Other (Breathing is mildly labored.) Cardiovascular: No edema, Regular rate/rhythm, Normal S1 S2 Gastrointestinal: Soft and benign, Non-distended Musculoskeletal: No swelling Integumentary: No rashes Neurological: Other (No focal motor deficit.) Assessment And Plan - Current Problems (Diagnosis) (1) Pneumonia due to 2019 novel coronavirus Current Visit: Yes Status: Acute (2) Acute respiratory failure with hypoxia Current Visit: Yes Status: Acute (3) Diabetes mellitus type 2 in obese Current Visit: Yes Status: Acute (4) Hypertension Current Visit: Yes Status: Acute - Plan Patient clinical condition getting worse. Continue IV steroid. Will also give convalescent plasma and Remdesivir. Continue vitamin-C, vitamin-D and zinc supplementation. Insulin sliding scale for glucose management. Watch for steroid induced hyperglycemia. Continue home medication for hypertension. Monitor ferritin and CRP levels.
[2020-10-27] MEDS ORDERED: Remdesivir 200 MG in NA CHLORIDE 0.9% 250 ML IV ONE (14:00)
[2020-10-27] MEDS: INSULIN GLARGINE 100 UNITS/ML SQ SCH (20:12)
[2020-10-27] MEDS ORDERED: NA CHLORIDE 0.9% 250 ML ONE (21:55)
[2020-10-28] MEDS: ALBUTEROL 2.5 MG/3 ML NEB SOL NEB SCH ×4 (02:00→19:45)
[2020-10-28 04:21] LABS: Absolute Lymphocytes (CBC) 0.8 K/uL (0.7-4.9); Basophils % 0.2 % (0-1.3); Hematocrit 36.4 % (36.0-45.0); Lymphocytes % 8.3 % (15.3-44.8); MPV 9.2 fL (7.6-11.3); RBC Red Blood Cell Count 4.18 M/uL (3.86-4.86)
[2020-10-28 04:30] LABS: ALT/SGPT 27 U/L (12-78); AST/SGOT 23 U/L (15-37); Albumin 2.8 g/dL (3.4-5.0); Alkaline Phosphatase 60 U/L (45-117); BUN Blood Urea Nitrogen 14 mg/dL (7-18); Bicarbonate 27 mmol/L (21-32); Bilirubin Direct 0.2 mg/dL (0-0.2); Bilirubin Total 0.5 mg/dL (0.2-1.0); Glucose Level 249 mg/dL (74-106); Protein, Total 6.6 g/dL (6.4-8.2); Sodium Level 138 mmol/L (136-145)
[2020-10-28] MEDS: INSULIN -REGULAR HUMAN 50 UNIT/0.5 ML ML SQ SCH ×4 (07:30→20:33)
[2020-10-28] MEDS: APIXABAN 5 MG TABLET PO SCH ×2 (07:34→20:34)
[2020-10-28] MEDS: FAMOTIDINE 20 MG/2 ML VIAL IV SCH (07:36)
[2020-10-28] MEDS: METHYLPREDNISOLONE 125 MG INJ IV SCH ×2 (07:36→20:36)
[2020-10-28] MEDS: BENZONATATE 100 MG CAP PO PRN ×2 (08:50→20:34)
[2020-10-28] MEDS: Remdesivir 100 MG in NA CHLORIDE 0.9% 250 ML IV SCH (14:27)
--- NOTE | 2020-10-28 15:59 | P.PN ---
Subjective Date of Service: 10/28/20 Chief Complaint: Respiratory failure from schwartz virus Subjective: Improving (Still SOB on mild exertion) Review of Systems Respiratory: Shortness of Breath Physical Examination - Vital Signs Temperature: 97.4 F Blood Pressure: 139/63 Pulse: 68 Respirations: 24 Pulse Ox (%): 92 Assessment & Plan - Problems (Diagnosis) (1) Pneumonia due to 2019 novel coronavirus Current Visit: Yes Status: Acute Plan: resp failure.Still SOB. Add Ivermectin .Con wean downon O2 BS elevated/ poss Dc AM (2) Sleep apnea Current Visit: Yes Status: Acute Plan: Patient has a history of sleep apnea arm her CPAP machine is very old patient will need a new sleep study as an outpatient 1 she is off the oxygen as setup for a new a CPAP machine with with Medicare. Need a prescription for a new CPAP mask Qualifiers: Sleep apnea type: unspecified type Qualified Code(s): G47.30 - Sleep apnea, unspecified
[2020-10-28] MEDS ORDERED: D50W 25 GM/50 ML VIAL IV PRN (16:00)
--- NOTE | 2020-10-28 16:08 | P.PN ---
Subjective Date of Service: 10/28/20 Chief Complaint: Respiratory failure from schwartz virus Patient is still requiring 8 L of oxygen by nasal cannula. No major changes from yesterday. Physical Examination - Vital Signs Temperature: 97.4 F Blood Pressure: 139/63 Pulse: 68 Respirations: 24 Pulse Ox (%): 92 - Physical Exam General: Alert, In no apparent distress, Oriented x3 Respiratory: Other (Non labored breathing) Cardiovascular: Regular rate/rhythm Gastrointestinal: Soft and benign, Non-distended Musculoskeletal: No swelling Integumentary: No rashes Neurological: Normal strength at 5/5 x4 extr Assessment And Plan - Current Problems (Diagnosis) (1) Pneumonia due to 2019 novel coronavirus Current Visit: Yes Status: Acute (2) Acute respiratory failure with hypoxia Current Visit: Yes Status: Acute (3) Diabetes mellitus type 2 in obese Current Visit: Yes Status: Acute (4) Hypertension Current Visit: Yes Status: Acute - Plan Continue IV steroid. Oral pepcid for stress ulcer prophylaxis. Status post convalescent plasma. Patient is get Remdesivir. Continue vitamin-C, vitamin-D and zinc supplementation. Insulin sliding scale for glucose management. Monitor ferritin and CRP levels. Wean down oxygen as tolerated. Discharge once patient is able to tolerate about 4 L of oxygen by nasal cannula.
[2020-10-28] MEDS: INSULIN 70/30 100 UNITS/ML SQ SCH (16:42)
[2020-10-28] MEDS ORDERED: IVERMECTIN 3 MG TABLET PO ONE (17:00)
[2020-10-28] MEDS: INSULIN GLARGINE 100 UNITS/ML SQ SCH (20:33)
[2020-10-28] MEDS: ASCORBIC ACID 500 MG TABLET PO SCH (20:34)
[2020-10-28] MEDS: FAMOTIDINE 20 MG TAB PO SCH (20:36)
[2020-10-29] MEDS: ALBUTEROL 2.5 MG/3 ML NEB SOL NEB SCH ×4 (01:50→20:10)
[2020-10-29 04:27] LABS: ALT/SGPT 37 U/L (12-78); AST/SGOT 30 U/L (15-37); Albumin 2.6 g/dL (3.4-5.0); Alkaline Phosphatase 60 U/L (45-117); BUN Blood Urea Nitrogen 14 mg/dL (7-18); Bicarbonate 27 mmol/L (21-32); Bilirubin Direct 0.2 mg/dL (0-0.2); Bilirubin Total 0.5 mg/dL (0.2-1.0); Ferritin 583.5 ng/mL (8-388); Glucose Level 235 mg/dL (74-106); Potassium 4.2 mmol/L (3.5-5.1); Protein, Total 6.3 g/dL (6.4-8.2); Sodium Level 138 mmol/L (136-145)
[2020-10-29] MEDS ORDERED: IVERMECTIN 3 MG TABLET PO ONE (06:00)
[2020-10-29] MEDS: ZINC SULFATE 220 MG CAP PO SCH (08:04)
[2020-10-29] MEDS: VITAMIN D 1000 UNIT TAB PO SCH (08:04)
[2020-10-29] MEDS: FAMOTIDINE 20 MG TAB PO SCH ×2 (08:05→21:00)
[2020-10-29] MEDS: BENZONATATE 100 MG CAP PO PRN (08:05)
[2020-10-29] MEDS: ASCORBIC ACID 500 MG TABLET PO SCH ×2 (08:05→20:59)
[2020-10-29] MEDS: INSULIN 70/30 100 UNITS/ML SQ SCH ×2 (08:06→16:56)
[2020-10-29] MEDS: INSULIN -REGULAR HUMAN 50 UNIT/0.5 ML ML SQ SCH ×4 (08:06→21:02)
[2020-10-29] MEDS: APIXABAN 5 MG TABLET PO SCH ×2 (08:06→21:00)
[2020-10-29] MEDS: METHYLPREDNISOLONE 125 MG INJ IV SCH ×2 (08:07→21:00)
[2020-10-29] MEDS: Remdesivir 100 MG in NA CHLORIDE 0.9% 250 ML IV SCH (14:00)
--- NOTE | 2020-10-29 18:38 | P.PN ---
Subjective Date of Service: 10/29/20 Chief Complaint: Respiratory failure from schwartz virus Subjective: Improving (slowly improving, feels slightly better today) Review of Systems 10-point ROS is otherwise unremarkable Physical Examination - Vital Signs Temperature: 97.6 F Blood Pressure: 126/58 Pulse: 61 Respirations: 22 Pulse Ox (%): 96 Assessment & Plan Physician Review Additional Text: Physical Exam General: Alert, In no apparent distress, Oriented x3 Pulm: Non labored breathing CV: Regular rate/rhythm Abd: Soft and benign, Non-distended Ext: No swelling, no rash Problem List: Pneumonia due to 2019 novel coronavirus Acute respiratory failure with hypoxia Diabetes mellitus type 2 in obese Hypertension Continue IV steroid. Oral pepcid for stress ulcer prophylaxis. Status post convalescent plasma. Receivign Remdesevir Continue vitamin-C, vitamin-D and zinc supplementation. Insulin sliding scale for glucose management. Monitor ferritin and CRP levels. Wean down oxygen as tolerated. Discharge once patient is able to tolerate about 4 L of oxygen by nasal cannula. Time Spent Managing Pts Care (In Minutes): 35
[2020-10-29] MEDS: INSULIN GLARGINE 100 UNITS/ML SQ SCH (21:02)
[2020-10-30] MEDS: ALBUTEROL 2.5 MG/3 ML NEB SOL NEB SCH ×4 (01:55→19:25)
[2020-10-30 04:14] LABS: ALT/SGPT 47 U/L (12-78); AST/SGOT 33 U/L (15-37); Albumin 2.7 g/dL (3.4-5.0); Alkaline Phosphatase 68 U/L (45-117); BUN Blood Urea Nitrogen 13 mg/dL (7-18); Bicarbonate 26 mmol/L (21-32); Bilirubin Direct 0.3 mg/dL (0-0.2); Bilirubin Total 0.7 mg/dL (0.2-1.0); C-Reactive Protein 9.26 mg/L (<3.00); Ferritin 549.5 ng/mL (8-388); Glucose Level 238 mg/dL (74-106); Potassium 4.1 mmol/L (3.5-5.1); Protein, Total 6.2 g/dL (6.4-8.2); Sodium Level 139 mmol/L (136-145)
[2020-10-30] MEDS: INSULIN -REGULAR HUMAN 50 UNIT/0.5 ML ML SQ SCH ×4 (08:24→22:41)
[2020-10-30] MEDS: INSULIN 70/30 100 UNITS/ML SQ SCH ×2 (08:25→16:49)
[2020-10-30] MEDS: VITAMIN D 1000 UNIT TAB PO SCH (08:26)
[2020-10-30] MEDS: ASCORBIC ACID 500 MG TABLET PO SCH ×2 (08:26→22:41)
[2020-10-30] MEDS: METHYLPREDNISOLONE 125 MG INJ IV SCH (08:27)
[2020-10-30] MEDS: ZINC SULFATE 220 MG CAP PO SCH (08:27)
[2020-10-30] MEDS: FAMOTIDINE 20 MG TAB PO SCH ×2 (08:27→22:41)
[2020-10-30] MEDS: APIXABAN 2.5 MG TABLET PO SCH ×2 (09:28→22:43)
[2020-10-30] MEDS: Remdesivir 100 MG in NA CHLORIDE 0.9% 250 ML IV SCH (14:00)
--- NOTE | 2020-10-30 16:47 | P.PN ---
Subjective Date of Service: 10/29/20 Chief Complaint: Respiratory failure from schwartz virus Subjective: Improving (Patient is improving currently on nasal cannula oxygen) Review of Systems Respiratory: Shortness of Breath Physical Examination - Vital Signs Temperature: 96.9 F Blood Pressure: 145/83 Pulse: 76 Respirations: 22 Pulse Ox (%): 90 - Studies Microbiology Data (last 24 hrs): 10/25/20 10:15 Blood - Blood Aerobic Blood Culture - Final No growth in 5 days. 10/25/20 10:15 Blood - Blood Anaerobic Blood Culture - Final No growth in 5 days. 10/25/20 10:00 Blood - Blood Aerobic Blood Culture - Final No growth in 5 days. 10/25/20 10:00 Blood - Blood Anaerobic Blood Culture - Final No growth in 5 days. Assessment & Plan - Problems (Diagnosis) (1) Pneumonia due to 2019 novel coronavirus Current Visit: Yes Status: Acute Plan: Patient has respiratory failure from schwartz virus is improving has home oxygen (2) Sleep apnea Current Visit: Yes Status: Acute Plan: Will send a prescription for CPAP to [facility] patient will need an outpatient sleep study and CPAP Qualifiers: Sleep apnea type: unspecified type Qualified Code(s): G47.30 - Sleep apnea, unspecified Physician Review Additional Text: Physical Exam General: Alert, In no apparent distress, Oriented x3 Pulm: Non labored breathing CV: Regular rate/rhythm Abd: Soft and benign, Non-distended Ext: No swelling, no rash Problem List: Pneumonia due to 2019 novel coronavirus Acute respiratory failure with hypoxia Diabetes mellitus type 2 in obese Hypertension Continue IV steroid. Oral pepcid for stress ulcer prophylaxis. Status post convalescent plasma. Receivign Remdesevir Continue vitamin-C, vitamin-D and zinc supplementation. Insulin sliding scale for glucose management. Monitor ferritin and CRP levels. Wean down oxygen as tolerated. Discharge once patient is able to tolerate about 4 L of oxygen by nasal cannula.
--- NOTE | 2020-10-30 17:25 | P.PN ---
Subjective Date of Service: 10/30/20 Chief Complaint: Respiratory failure from schwartz virus Subjective: Improving (oxygen requirement improving, feeling better) Review of Systems 10-point ROS is otherwise unremarkable Physical Examination - Vital Signs Temperature: 96.9 F Blood Pressure: 145/83 Pulse: 76 Respirations: 22 Pulse Ox (%): 90 - Studies Microbiology Data (last 24 hrs): 10/25/20 10:15 Blood - Blood Aerobic Blood Culture - Final No growth in 5 days. 10/25/20 10:15 Blood - Blood Anaerobic Blood Culture - Final No growth in 5 days. 10/25/20 10:00 Blood - Blood Aerobic Blood Culture - Final No growth in 5 days. 10/25/20 10:00 Blood - Blood Anaerobic Blood Culture - Final No growth in 5 days. Assessment & Plan Physician Review Additional Text: Physical Exam General: Alert, In no apparent distress, Oriented x3 Pulm: Non labored breathing on 6L NC CV: Regular rate/rhythm Abd: Soft and benign, Non-distended Ext: No swelling, no rash Problem List: Pneumonia due to 2019 novel coronavirus Acute respiratory failure with hypoxia Diabetes mellitus type 2 in obese Hypertension Continue IV steroid - decrease to 40mg IV. Oral pepcid for stress ulcer prophylaxis. Status post convalescent plasma. Receiving Remdesevir Continue vitamin-C, vitamin-D and zinc supplementation. Insulin sliding scale for glucose management. on 70/30 insulin, will increase for better control ferritin/CRP improved Wean down oxygen as tolerated. Discharge once patient is able to tolerate about 4 L of oxygen by nasal cannula. Dispo: anticipate dc home with home O2 in 24-48hrs Time Spent Managing Pts Care (In Minutes): 35
[2020-10-30] MEDS: METHYLPREDNISOLONE 40 MG INJ IV SCH (22:40)
[2020-10-30] MEDS: INSULIN GLARGINE 100 UNITS/ML SQ SCH (22:42)
[2020-10-31] MEDS: ALBUTEROL 2.5 MG/3 ML NEB SOL NEB SCH ×2 (01:40→10:04)
[2020-10-31 04:37] LABS: ALT/SGPT 44 U/L (12-78); AST/SGOT 19 U/L (15-37); Albumin 2.7 g/dL (3.4-5.0); Alkaline Phosphatase 88 U/L (45-117); BUN Blood Urea Nitrogen 10 mg/dL (7-18); Bicarbonate 26 mmol/L (21-32); Bilirubin Direct 0.2 mg/dL (0-0.2); Bilirubin Total 0.6 mg/dL (0.2-1.0); Glucose Level 271 mg/dL (74-106); Potassium 4.1 mmol/L (3.5-5.1); Protein, Total 6.1 g/dL (6.4-8.2); Sodium Level 138 mmol/L (136-145)
[2020-10-31] MEDS ORDERED: INSULIN 70/30 100 UNITS/ML SQ SCH (07:30)
[2020-10-31] MEDS: FAMOTIDINE 20 MG TAB PO SCH (08:34)
[2020-10-31] MEDS: VITAMIN D 1000 UNIT TAB PO SCH (08:34)
[2020-10-31] MEDS: METHYLPREDNISOLONE 40 MG INJ IV SCH (08:34)
[2020-10-31] MEDS: ZINC SULFATE 220 MG CAP PO SCH (08:34)
[2020-10-31] MEDS: ASCORBIC ACID 500 MG TABLET PO SCH (08:34)
[2020-10-31] MEDS: APIXABAN 2.5 MG TABLET PO SCH (08:34)
[2020-10-31] MEDS: INSULIN -REGULAR HUMAN 50 UNIT/0.5 ML ML SQ SCH ×2 (08:35→12:14)
[2020-10-31 09:26] VITALS: O2SAT 93
[2020-10-31 11:54] VITALS: BP 144/70; TEMP 96.8
--- NOTE | 2020-10-31 13:10 | P.DS ---
Admission Date: 10/25/20 Discharge Date: 10/31/20 Disposition: ROUTINE DISCHARGE Discharge Condition: FAIR Reason for Admission: Respiratory failure from schwartz virus Consultations: Pulmonology - Dr. Lynch Procedures: CXR (10/25): Mild to moderate left lung opacities probably pneumonia. This should be followed until it is clear to exclude a post obstructive process/underlying mass CTA Chest (10/25): Negative for a pulmonary embolism. Mild to moderate bilateral ground-glass opacities may indicate Covid pneumonia Hgb A1c (10/29): 7.5 Problem List: Acute respiratory failure with hypoxia secondary to COVID-19 pneumonia Diabetes mellitus type 2 in obese (was non-insulin dependent) Hypertension Brief History of Present Illness: 65yo F, PMH: HTN, DM2 (non-insulin dependent) presented to the emergency department with a complaint of progressive shortness of breath. She was diagnosed with COVID-19 ~1 week ago and was prescribed azithromycin by her PCP. Patient reports progressive shortness of breath which became worse today and therefore presented to the emergency department. CT angiogram of thorax done in the emergency shows mild to moderate bilateral patchy infiltrates consistent with COVID pneumonia. Patient noted to be hypoxic with oxygen saturation in the mid 80s on room air. Patient was hospitalized for further management of COVID pneumonia. Hospital Course: Patient was treated for COVID-19 pneumonia with steroids, vitamin sup plementation, convalescent plasma, and remdesevir. Pulmonology was consulted. She had noted improvement and was discharged home with home oxygen, steroids. Eliquis (in setting of COVID), and insulin 70/30. Patient was previously non- insulin dependent, however she had significantly elevated glucose up to 300s during her hospitalization, likely steroid-induced. HgA1c: 7.5 (10/29). She was instructed on insulin self-administration and reported comfortable with process. Explained this is likely temporary due to steroid induced hyperglycemia. She was instructed to keep a diary of at least BID glucose readings to follow up with her PCP for further adjustments. Otherwise, she will follow up with Dr. Lynch in ~1 week. Vital Signs/Physical Exam: Physical Exam: General: Alert, In no apparent distress, Oriented x3 HEENT: normal conjuctiva, sclera anicteric, moist mucous membranes Pulm: Non labored breathing on 3L NC CV: Regular rate/rhythm Abd: Soft and benign, Non-distended Ext: No swelling, no rash Temp Pulse Resp BP Pulse Ox 96.8 F 67 16 144/70 H 93 10/31/20 11:53 10/31/20 11:53 10/31/20 11:53 10/31/20 11:53 10/31/20 11:53 Laboratory Data at Discharge: WBC 9.90 K/uL (4.3-10.9) D 10/28/20 03:23 Hgb 12.8 g/dL (12.0-15.0) 10/28/20 03:23 Hct 36.4 % (36.0-45.0) 10/28/20 03:23 Plt Count 174 K/uL (152-406) 10/28/20 03:23 PT 12.3 SECONDS (9.5-12.5) 10/25/20 10:00 INR 1.07 10/25/20 10:00 APTT 24.7 SECONDS (24.3-36.9) 10/25/20 10:00 Sodium 138 mmol/L (136-145) 10/31/20 03:17 Potassium 4.1 mmol/L (3.5-5.1) 10/31/20 03:17 BUN 10 mg/dL (7-18) 10/31/20 03:17 Creatinine 0.57 mg/dL (0.55-1.3) 10/31/20 03:17 Glucose 271 mg/dL (74-106) H 10/31/20 03:17 Phosphorus 3.3 mg/dL (2.5-4.9) 10/26/20 03:43 Magnesium 2.4 mg/dL (1.8-2.4) 10/26/20 03:43 Total Bilirubin 0.6 mg/dL (0.2-1.0) 10/31/20 03:17 AST 19 U/L (15-37) 10/31/20 03:17 ALT 44 U/L (12-78) 10/31/20 03:17 Alkaline Phosphatase 88 U/L (45-117) 10/31/20 03:17 Lipase 165 U/L (73-393) 10/25/20 10:00 Home Medications: Calcium Carbonate/Vitamin D3 [Calcium 500 mg-Vit D3 5 Mcg Tb] 500 mg PO DAILY 10/25/20 Dapagliflozin Propanediol [Farxiga] 10 mg PO DAILY 10/25/20 Enalapril Maleate 20 mg PO DAILY 10/25/20 Letrozole [Femara*] 2.5 mg PO DAILY 10/25/20 Apixaban [Eliquis] 5 mg PO BID #60 tablet 10/26/20 Ascorbic Acid [Vitamin C] 2,000 mg PO BID #240 tab.chew 10/26/20 Benzonatate [Tessalon Perle*] 200 mg PO Q3HP PRN #90 cap 10/26/20 Cholecalciferol (Vitamin D3) [Vitamin D3] 4,000 unit PO DAILY #30 capsule 10/14 12/01 Zinc Sulfate [Zinc Sulfate*] 220 mg PO DAILY #30 cap 10/26/20 dexAMETHasone [Dexamethasone] 4 mg PO BID #21 tablet 10/26/20 Insulin 70/30 NPH/Reg Human [Novolin 70/30*] 25 unit SQ BID 21 Days #20 ml 10/31/20 New Medications: Benzonatate [Tessalon Perle*] 200 mg PO Q3HP PRN #90 cap PRN Reason: Cough dexAMETHasone [Dexamethasone] 4 mg PO BID #21 tablet Apixaban [Eliquis] 5 mg PO BID #60 tablet Insulin 70/30 NPH/Reg Human [Novolin 70/30*] 25 unit SQ BID 21 Days #20 ml Ascorbic Acid [Vitamin C] 2,000 mg PO BID #240 tab.chew Cholecalciferol (Vitamin D3) [Vitamin D3] 4,000 unit PO DAILY #30 capsule Zinc Sulfate [Zinc Sulfate*] 220 mg PO DAILY #30 cap Physician Discharge Instructions: you were found to have COVID-19 pneumonia. You are discharged with steroids, eliquis (blood thinner), and insulin. Check your blood sugar twice a day, follow up with your PCP in the next 1-2 weeks. Keep track of your blood sugar to review at follow-up appointment for further adjustments. Follow up with Pulmonology (Dr. Lynch in 1 week) - call his office to schedule. Diet: AHA Activity: Ad dayana Followup: Lazarus Lynch MD [ACTIVE - CAN ADMIT] - 1 Week NONE,NONE [Primary Care Provider] - Time spent managing pt's care (in minutes): 40
[2020-10-31] MEDS: Remdesivir 100 MG in NA CHLORIDE 0.9% 250 ML IV SCH (13:39)
== END 2020-10-31 14:38 | disposition home or self-care (01) | DRG 177 ==
LOC: ER 09:23 → OBSVTOIN 12:52 → INTOOBSV 12:52 → ERHOLD 12:52 → 4TH 12:55 → OBSVTOIN 10-26 18:03
PROVIDERS: ADMIT Internal Medicine; ATTEND Hospitalist
PROC: XW14325 Transfusion of Convalescent Plasma (Nonautologous) into Central Vein, Percutaneous Approach, New Technology Group 5 (ICD-10-PCS; 2020-10-27)
PROC: XW033E5 Introduction of Remdesivir Anti-infective into Peripheral Vein, Percutaneous Approach, New Technology Group 5 (ICD-10-PCS; principal; 2020-10-28)
DX: U07.1 COVID-19 (principal); J12.82 Pneumonia due to coronavirus disease 2019; J96.01 Acute respiratory failure with hypoxia; E11.9 Type 2 diabetes mellitus without complications; G47.30 Sleep apnea, unspecified; I10 Essential (primary) hypertension; E66.9 Obesity, unspecified; Z68.38 Body mass index [BMI] 38.0-38.9, adult; Z88.1 Allergy status to other antibiotic agents; Z79.01 Long term (current) use of anticoagulants; Z79.899 Other long term (current) drug therapy; Z90.49 Acquired absence of other specified parts of digestive tract; Z90.10 Acquired absence of unspecified breast and nipple; Z85.3 Personal history of malignant neoplasm of breast; Z79.4 Long term (current) use of insulin
CPT/HCPCS: 36415; 71045; 71275; 80048; 80053; 80076; 81003; 82248; 82728; 82947; 83036; 83605; 83690; 83735; 84100; 84145; 84484; 85025; 85379; 85610; 85730; 86140; 86900; 86901; 86927; 87040; 94010; 94640; 94660; 94760; 96374; 99285; J1100; J1200; J1815; J2920; J2930; J7050; Q9967